=== PATIENT | female | born 1990 | race Caucasian/White ===

== ENCOUNTER 2019-09-02 12:56 | Emergency (ER) | payer OTHER, SELFPAY ==
[2019-09-02 13:42] VITALS: BP 123/74; PULSE 100; RESP 18; TEMP 36.8; O2SAT 97
--- NOTE | 2019-09-02 15:11 | ED.DENTAL ---
HPI - Dental/Oral General Chief complaint: Dental/Oral Stated complaint: face swollen Source: patient Mode of arrival: ambulatory Limitations: no limitations History of Present Illness HPI Narrative: 28-year-old complains of left facial swelling and pain which started this morning, #8/ 10. She has muliple left maxillary dental caries and has an appointment for extraction in 3 days. She has been antibiotic free for more than 3 months. She denies fevers, chills,headaches or body aches. She's able to fully open her mouth and swallow. Related Data Home Medications Medication Instructions Recorded Confirmed norgestimate-ethinyl estradiol 1 tablet PO DAILY 09/02/19 09/02/19 [Sprintec (28)] oxcarbazepine 300 mg PO BID 09/02/19 09/02/19 Allergies Allergy/AdvReac Type Severity Reaction Status Date / Time bee venom protein (honey bee) Allergy Intermediate swelling Verified 09/13/18 14:48 Buttermilk Allergy Intermediate rash Uncoded 09/13/18 14:48 Review of Systems Constitutional: Constitutional: Reports no additional constitutional complaints ENT: Reports system reviewed and no additional complaints, except as documented [facility] Past Medical History Medical History (Updated 09/02/19 @ 15:16 by Dominick Steinberg MD) Mood disorder Exam Narrative: Exam Narrative: Temperature 36.8? pulse of 100 Const: Other: minor distress HENMT: Other: left upper cheek is swollen there is no erythema or induration but it is tender. She is able to fully open her mouth. Tooth 13 his very decayed. There is no surrounding, swelling and no discharge Tympanic membranes Neck: Other: no cervical lymp nodes Course Course Emergency Course: Diagnosis of tooth abscess discussed with patient. She understands the need to come back if any worsening, if not better in 3 days, or resolved in one week. Vital Signs Vital signs: Vital Signs Temperature 36.8 C 09/02/19 13:42 Pulse Rate 100 09/02/19 13:42 Respiratory Rate 18 09/02/19 13:42 Blood Pressure 123/74 09/02/19 13:42 Pulse Oximetry 97 09/02/19 13:42 Temperature 36.8 C 09/02/19 13:42 Pulse Rate 100 09/02/19 13:42 Respiratory Rate 18 09/02/19 13:42 Blood Pressure 123/74 09/02/19 13:42 Pulse Oximetry 97 09/02/19 13:42 Discharge Plan Discharge Clinical Impression: Dental abscess Patient Disposition: Home, Self-Care Condition: Stable Instructions: Antibiotic Form, Dental Abscess (ED) Additional Instructions: Return if worsening swelling or pain . See Dentist on 09/04 Ibuprofen 400 mg every 4 - 6 hours as needed for pain. Prescriptions: New amoxicillin 500 mg capsule 500 mg PO TID Qty: 21 RF: 0 No Action norgestimate-ethinyl estradiol [Sprintec (28)] 0.25-35 mg-mcg tablet 1 tablet PO DAILY RF: 0 oxcarbazepine 300 mg tablet 300 mg PO BID RF: 0 Follow-up/Referrals: Zayda,CLARISSA Pugh [Primary Care Provider] - Stand Alone Forms: Work/School Release IP Time of Disposition: 15:13 Discharge Date/Time: 09/02/19 15:20
== END 2019-09-02 15:20 | disposition home or self-care (01) ==
PROVIDERS: Emergency Provider Family Medicine; PCP Physician Assistant
DX: K04.7 Periapical abscess without sinus (principal)
CPT/HCPCS: 99283

== ENCOUNTER 2019-10-11 17:59 | Emergency (ER) | payer OTHER, SELFPAY ==
[2019-10-11 18:13] VITALS: BP 135/67; PULSE 93; RESP 17; TEMP 36.4; O2SAT 98
--- NOTE | 2019-10-11 18:27 | ED.GENADULT ---
HPI - General Adult General Chief complaint: Abdominal Pain Stated complaint: right side pain History of Present Illness HPI narrative: Keila is a 29F with a PMH of a large ovarian cyst on the right that presented to the ED with pain in the RLQ. Pain started insidious yesterday evening. It is a waxing and waning cramping pain in her RLQ. He denies fevers, chills, N/V/D, anorexia, CP, SOB, hematuria, dysuria, vaginal bleeding and discharge. Last menses was 2 weeks ago. Related Data Home Medications Medication Instructions Recorded Confirmed norgestimate-ethinyl estradiol 1 tablet PO DAILY 09/02/19 10/11/19 [Sprintec (28)] oxcarbazepine 300 mg PO BID 09/02/19 10/11/19 Allergies Allergy/AdvReac Type Severity Reaction Status Date / Time bee venom protein (honey bee) Allergy Intermediate swelling Verified 09/13/18 14:48 Buttermilk Allergy Intermediate rash Uncoded 09/13/18 14:48 Review of Systems Constitutional: Constitutional: Reports no additional constitutional complaints, Denies chills and Denies fever(s) Eyes: Eyes: Reports no additional eye complaints ENT: Reports system reviewed and no additional complaints, except as documented Cardiovascular: Cardiovascular: Reports no additional cardiovascular complaints Respiratory: Respiratory: Reports no additional respiratory complaints Gastrointestinal: Gastrointestinal: Reports as per HPI Genitourinary: Genitourinary: Reports no additional female genitourinary complaints Musculoskeletal: Musculoskeletal: Reports no additional musculoskeletal complaints Integumentary/Breasts: Skin/Breast: Reports system reviewed and no additional complaints, except as docu Neurologic: Reports system reviewed and no additional complaints, except as documented Psychiatric: Psychiatric: Reports no additional psychiatric complaints [facility] Past Medical History Medical History Mood disorder Exam Const: General: no acute distress and alert Orientation/consciousness: patient oriented x3 Limitations: No altered mental status HENMT: Head: normal to inspection Eyes: Pupils: Equal, round and reactive pupils present Neck: Neck: normal visual inspection Chest: Chest palpation & inspection: normal inspection of the chest Resp: Effort & Inspection: normal respiratory effort Auscultation: clear to auscultation bilaterally Cardio: Rate: regular rate Rhythm: regular rhythm GI: GI Palp: Yes Soft to palpation Other: Mildly TTP in the suprapubic region and RLQ. No guarding or rebound tenderness. Negative obturator and psoas signs. Negative Rosving's and Price's. : General: Yes no CVA tenderness Other: mild suprapubic tenderness Skin: General skin exam: normal color Rashes: no rashes Neuro: General: patient oriented x3 and moves all extremities Extrem: General: normal to inspection Psych: Mental Status: mental status grossly normal Course Course Emergency Course: Keila was seen and evaluated. Ordered labs as below. Offered meds for pain but she refused. Labs were significant for blood in the urine, leukocyte esterase positive and bacteria making UTI likely. As her Hgb was normal, she had stable vital signs a ruptured ovarian cyst is unlikely. She was instructed to f/u with her PCP next week for possible US of ovarian cyst. Vital Signs Vital signs: Vital Signs Temperature 36.4 C 10/11/19 18:13 Pulse Rate 93 10/11/19 18:13 Respiratory Rate 17 10/11/19 18:13 Blood Pressure 135/67 10/11/19 18:13 Pulse Oximetry 98 10/11/19 18:13 Temperature 36.4 C 10/11/19 18:13 Pulse Rate 93 10/11/19 18:13 Respiratory Rate 17 10/11/19 18:13 Blood Pressure 135/67 10/11/19 18:13 Pulse Oximetry 98 10/11/19 18:13 Medical Decision Making Vital Signs Vital Signs: Vital Signs Temperature 36.4 C 10/11/19 18:13 Pulse Rate 93 10/11/19 18:13 Respiratory Rate 17 10/11/19 18:1
[2019-10-11 18:47] LABS: Basophils Absolute Auto 0.03 K/mm3 (0.00-0.10); Basophils Percent Auto 0.3 % (0.0-1.0); Eosinophils Absolute Auto 0.03 K/mm3 (0.02-0.50); Eosinophils Percent Auto 0.3 % (1.0-6.0); Hematocrit 39.4 % (35.0-49.0); Hemoglobin 13.7 g/dL (12.0-15.0); Immature Granulocyte Absolute 0.02 K/mm3 (0.00-0.00); Immature Granulocyte Percent A 0.2 % (0.0-0.0); Lymphocytes Percent Auto 37.9 % (18.0-42.0); Mean Corpuscular HGB Conc 34.8 g/dL (32.0-36.0); Mean Corpuscular Hemoglobin 30.3 pg (27.0-31.0); Mean Corpuscular Volume 87.2 fL (78.0-102.0); Mean Platelet Volume 10.3 fl (9.2-11.8); Monocytes Absolute Auto 0.57 K/mm3 (0.10-0.90); Monocytes Percent Auto 6.2 % (2.0-11.0); Neutrophils Absolute Auto 5.1 K/mm3 (1.7-7.2); Neutrophils Percent Auto 55.1 % (50.0-70.0); Platelet Count Result 262 K/mm3 (150-420); Red Blood Count 4.52 M/mm3 (4.20-5.40); Red Cell Distribution Width 12.3 % (11.6-14.4); White Blood Count 9.2 K/mm3 (4.8-10.8)
[2019-10-11 18:49] LABS: Add Urine Microscopic? YES; Appearance Urine Sl Cloudy (Clear); Bilirubin Urine Negative (Negative); Blood Urine 3+ (Negative); Color Urine Yellow (Yellow); Glucose Urine UA Negative (Negative); Ketones Urine Negative (Negative); Leukocyte Esterase Ur 1+ (Negative); Nitrate Urine Negative (Negative); Protein Urine Negative (Negative); Specific Grav Ur 1.015 (1.010-1.020)
[2019-10-11 18:55] LABS: Pregnancy On Board Control Positive; Specific Gravity Ur 1.015 (1.010-1.035); Urine Pregnancy Test Negative
[2019-10-11 18:59] LABS: Squamous Epithelial Cell Urine Moderate /hpf (Few)
[2019-10-11 18:59] LABS: Prothrombin Time 10.1 Seconds (9.64-11.0)
[2019-10-11 19:00] LABS: Bacteria Urine 1+ /hpf; Mucus Urine Few /lpf
[2019-10-11 19:05] LABS: Alanine Aminotransferase 49 U/L (14-59); Albumin Level 3.7 g/dL (3.4-5.0); Alkaline Phosphatase 89 U/L (46-116); Anion Gap 14.3 mmol/L (7-16); Aspartate Amino Transferase 38 U/L (15-37); Bilirubin,Total 0.2 mg/dL (0.00-1.00); Blood Urea Nitrogen 10 mg/dL (7-18); Carbon Dioxide 25 mmol/L (21-32); Chloride 102 mmol/L (98-108); Estimated Glomerular Filt Rate > 60; Glucose 104 mg/dL (70-99); Lipase 87 U/L (73-393); Osmolality Calculated 283 mOsm/kg (285-295); Potassium 4.3 mmol/L (3.5-5.1); Sodium 137 mmol/L (136-145); Total Protein 6.9 g/dL (6.4-8.2)
[2019-10-11 19:10] LABS: Lactic Acid 0.9 mmol/L (0.4-2.0)
[2019-10-11] MEDS: CEPHALEXIN 500 MG CAPSULE PO (19:21)
[2019-10-11 19:28] VITALS: RESP 15
== END 2019-10-11 19:25 | disposition home or self-care (01) ==
PROVIDERS: Emergency Provider Family Medicine; PCP Physician Assistant
DX: N39.0 Urinary tract infection, site not specified (principal); N83.209 Unspecified ovarian cyst, unspecified side
CPT/HCPCS: 36415; 80053; 81001; 81025; 83605; 83690; 85025; 85610; 99283; A9270